=== PATIENT | male | born 1970 | race Two or more races ===

== ENCOUNTER 2021-03-04 07:15 | Inpatient (IN) | payer OTHER ==
[~2021-03-04] VITALS: Ht 177.8 cm; Wt 94.3 kg
[2021-03-04] MEDS ORDERED: SYNTHROID50 MCG PO (09:00)
[2021-03-04] MEDS ORDERED: GABAPENTIN600 MG PO (09:01)
[2021-03-04] MEDS ORDERED: FOLIC ACID20 MG PO (09:01)
[2021-03-10] MEDS ORDERED: MONTELUKAST SOD10 MG (14:51)
[2021-03-10] MEDS ORDERED: BACLOFEN10 MG (14:51)
[2021-03-10] MEDS ORDERED: DICLOFENAC POTA50 MG (14:52)
[2021-03-10] MEDS ORDERED: COUGH (14:52)
[2021-03-10] MEDS ORDERED: ANTACID ANTI-G355 ML (14:52)
[2021-03-10] MEDS ORDERED: BENADRYL25 MG (14:52)
[2021-03-10] MEDS ORDERED: BACITRACIN28.4 G1 (14:52)
[2021-03-10] MEDS ORDERED: DULOXETINE HCL60 MG (14:52)
[2021-03-10] MEDS ORDERED: IRBESARTAN150 MG (14:53)
[2021-03-10] MEDS ORDERED: LANSOPRAZOLE30 MG (14:53)
[2021-03-10] MEDS ORDERED: ROSUVASTATIN CA20 MG (14:53)
[2021-03-10] MEDS ORDERED: LORATADINE10 MG (14:53)
[2021-03-10] MEDS ORDERED: CETIRIZINE HCL10 MG (14:53)
[2021-03-10] MEDS ORDERED: MAXIMUM D3325 MCG (14:53)
[2021-03-10] MEDS ORDERED: CLOPIDOGREL BIS75 MG (14:53)
[2021-03-10] MEDS ORDERED: VITAMIN C500 M1 (14:53)
[2021-03-10] MEDS ORDERED: PERCOCET 5-3251 EACH PO (18:14)
[2021-03-10] MEDS ORDERED: MEDROLPACK PO (18:14)
[2021-03-10] MEDS ORDERED: DIAZEPAM5 MG PO (18:14)
[2021-03-10] MEDS ORDERED: COLACE100 MG PO (18:14)
== END 2021-03-11 19:39 | disposition home or self-care (01) | DRG 565 ==
LOC: SURH 03-10 07:15 → O/R 03-10 08:38 → SURH 03-10 08:38
PROVIDERS: ADMIT Orthopaedic Surgery Orthopaedic Surgery of the Spine; ATTEND Orthopaedic Surgery Orthopaedic Surgery of the Spine
DX: M20.021 Boutonniere deformity of right finger(s) (principal); M50.023 Cervical disc disorder at C6-C7 level with myelopathy; M50.022 Cervical disc disorder at C5-C6 level with myelopathy; Z20.822 Contact with and (suspected) exposure to COVID-19